=== PATIENT | male | born 1985 | race Caucasian/White ===

== ENCOUNTER 2019-05-19 10:21 | Emergency (ER) | payer SELFPAY ==
[2019-05-19] MEDS ORDERED: Lidocaine 1% w/Epinephrine 1:100K 20 ML VIAL ONE (10:34)
[2019-05-19] MEDS ORDERED: Bupivacaine 0.5% 10 ML VIAL ONE (10:34)
[2019-05-19] MEDS ORDERED: Adacel (T-DAP) 0.5 ML SYRINGE ONE (10:35)
[2019-05-19] MEDS ORDERED: CEFAZOLIN 1 GM VIAL ONE (10:56)
--- NOTE | 2019-05-19 11:25 | RAD ---
RIGHT SECOND TOE 3 VIEWS: Date: 05/19/19 HISTORY: Trauma to toe. FINDINGS: There is soft tissue injury and fracture of the tuft of the distal phalanx. The tuft fragment is asso ciated with the displaced soft tissue component of the toe. IMPRESSION: Soft tissue and bony injury as discussed above. POS: [facility]
[2019-05-19] MEDS ORDERED: Ondansetron PF 4 MG/2 ML Vial ONE (11:44)
--- NOTE | 2019-05-19 17:58 | CON ---
DATE OF CONSULTATION: This is Dmitry Murray PA-C dictating a report for Vikram Valencia MD. ER called us about the patient for a right 2nd digit, right lower extremity partial amputation to the tip. HISTORY OF PRESENT ILLNESS: The patient was at work. 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 They were working on some equipment and the hydraulic machine pressed down on his toe and they want to move it again, it dropped partially severing his right lower extremity 2nd distal tip. He did not really complain of a lot of pain. Currently, he had a digit block with 0.5 mL of bupivacaine and lidocaine without epi and he seems to be quite comfortable. He also has a cut bruise to the medial side of his right great toe that is a little tender, especially after I cleaned the area with Betadine for a closer look. No other injuries occurred. He has good sensations to the rest of his digits and of course, his second digit is blocked. PAST MEDICAL HISTORY: Healthy. He did have a clavicle fracture on the right that was not repaired, many years ago. FAMILY HISTORY: Not contributory for this particular injury. PAST SURGICAL HISTORY: None. ALLERGIES: NO KNOWN DRUG ALLERGIES. CURRENT MEDICATIONS: He occasionally takes an OTC aspirin or Motrin after he works out, but otherwise quite healthy. REVIEW OF SYSTEMS: He has no positive review of systems other than the right 2nd digit injury, which currently is not painful. Rest of review of systems is negative. PHYSICAL EXAMINATION: GENERAL: Well-nourished, well-developed, healthy, young male, in a gurney in room 25 in the ER in no acute distress. Speech clear. Affect pleasant. Answers questions appropriately. He is alert and oriented x3 and a coworker is in the room with him. HEENT: Face symmetric. Tongue midline. NECK: Supple. Trachea midline. LUNGS: Respiratory rate 16. No acute distress. PELVIS: Rocked, no problems. EXTREMITIES: Upper extremities; equal size, shape, and symmetry, normal bulk and tone. Bilateral lower extremities; equal size, shape, and symmetry, normal bulk and tone with the exception of the right lower extremity has a distal tip partial amputation to the right 2nd digit. Also noted on the right medial great toe is a kind of avulsed flap, small with bruising from the injury. Sensations in lower extremities are good except that at 2nd digit which is blocked by Dr. Pascual, and DP and PT pulses are intact. ASSESSMENT: On the job injury with partial amputation of right lower extremity distal tip, 2nd digit. PLAN: I spoke with the patient, went over the risks and benefits. I planned to do a completion of the partial amputation. We will rongeur down the bone, approximate the tissue back together. I went over the risks and benefits. The patient's questions and concerns have been answered and he is amenable to go forth with the procedure in the ER. Job ID: [id number]
--- NOTE | 2019-05-20 08:21 | OP ---
DATE OF PROCEDURE: 05/19/2019 This is Dmitry Murray PA-C dictating a report for Vikram Valencia MD. The patient is in the ER with a partial right lower extremity distal tip amputation to the right second digit. PREOPERATIVE DIAGNOSIS: Right lower extremity second digit, partial tip amputation. POSTOPERATIVE DIAGNOSIS: Right lower extremity second digit, partial tip amputation. DESCRIPTION OF PROCEDURE: The patient had a digital block to the right second digit by Dr. Pascual used 0.5% bupivacaine and 1% lidocaine without epi, 10 mL mixed together used. The patient had a good block with no pain. Amputation was cleaned with Betadine copious amounts and normal saline. The area was again prepped second time with Betadine, dressed out in the sterile field. I used a rongeur sterilely from the OR and unable to down the bone until it was under the level of the amputation. I trimmed up the tissue around the amputation and I closed the wound with 3-0 nylon. Five sutures were applied. The patient tolerated the procedure well. Blood loss, very minimal. I wrapped toes with an Iodoform gauze and 4x4s , opened, wrapped around the first two digits as he has a partial avulsion laceration unrepairable on the medial right great toe and then Coban applied to both toes. The patient's tetanus was updated and Dr. Pascual wrote the patient some pain medications and antibiotics. He will follow up with our clinic in 2 to 3 days as I discussed in our consult note. The patient and I went over the risks and benefits with him and co-worker and they were both amenable to go forth with the procedure in the ER. The patient informed to keep the area clean and dry and again to see us in 2 to 3 days, sooner if there is any signs and symptoms of infection, which has been discussed with the patient and his co-worker. Job ID: [id number] [facility]
== END 2019-05-19 12:18 | disposition home or self-care (01) ==
LOC: ERS 10:21
DX: S98.131A Complete traumatic amputation of one right lesser toe, initial encounter (principal); X58.XXXA Exposure to other specified factors, initial encounter
CPT/HCPCS: 90471; 90715; 96365; J0690; J2405; J3490